=== PATIENT | female | born 1990 | race Caucasian/White ===

== ENCOUNTER 2020-02-21 14:14 | Emergency (ER) | payer MEDICAID, SELFPAY ==
[2020-02-21 14:14] VITALS: BP 124/81; PULSE 75; RESP 17; TEMP 36.6; O2SAT 98; BMI 39.1
--- NOTE | 2020-02-21 14:37 | HMH.EDUTC ---
[facility] [place] Clinical Impression: Otitis externa Qualifiers: Otitis externa type: unspecified type Chronicity: acute Laterality: bilateral Qualified Code(s): H60.503 - Unspecified acute noninfective otitis externa, bilateral Disposition: Home, Self-Care Condition on Discharge: Good Instructions: How to Instill Ear Drops, Otitis Externa, DI for Otitis Externa Additional Instructions: Drink plenty of fluids. Take tylenol or ibuprofen for pain or fever. Take the medications as directed. Follow up with your regular doctor. GO TO THE ER FOR ANY WORSENING SYMPTOMS Prescriptions: Ciprofloxacin HCl/Dexameth [Cipro 0.3%-Dex 0.1% Otic Susp 7.5mL] 2 drops EAR-BOTH BID 7 Days #1 bottle Transmission Status: Received by [id number] Azithromycin [Z-Abner 250mg Tab*] 250 mg PO UD DOSE PK #6 tab Transmission Status: Received by [id number] Referrals: Mj Foley [Primary Care Provider] - Time of Disposition: 14:48 Medical Decision Making - Medical Records Medical records reviewed: No: I reviewed the patient's medical records. - Tab Inquiry Pt receiving controlled substance: No Vital Signs: 02/21/20 14:14 02/21/20 14:52 Temperature 98 F 98 F Temperature Source Oral Oral Pulse Rate 75 Pulse Rate [Radial] 75 Respiratory Rate 17 17 Blood Pressure 124/81 Blood Pressure [Right Arm] 124/81 Blood Pressure Mean [Right Arm] 95 Blood Pressure Source Automatic Cuff Blood Pressure Source [Right Arm] Automatic Cuff Blood Pressure Position Sitting Blood Pressure Position [Right Arm] Sitting 02 Sat by Pulse Oximetry 98 Oxygen Delivery Method Room Air Room Air [facility] [place] - General Stated complaint: Ear pain both ears Time Seen by Provider: 02/21/20 14:42 Mode of Arrival: Ambulatory Source of Information: Patient Limitations: No Limitations Description of Symptoms (Recalled from Triage Doc. by RN): Bilateral ear pain with burning for approx 3 days now HEENT Symptoms (Recalled from RN notes): Yes Resp Symptoms (Recalled from RN notes): No Skin Symptoms (Recalled from RN notes): No MS Symptoms (Recalled from RN notes): No Functional Status (Recalled from RN notes): wnl - History of Present Illness Provider Complaint: She c/o bilateral ear pain and ear draingage for the past 3 days. She denies any fever, chills, or other symptoms. - Related Data Previous Rx's Medication Instructions Recorded Albuterol Sulfate [Albuterol HFA 1 - 2 puffs IH Q4-6H PRN #1 inh 10/19/19 Inhaler] methylPREDNISolone [Medrol 4mg 4 mg PO DIRECTED #21 tab 10/19/19 tab] Azithromycin [Z-Abner 250mg Tab*] 250 mg PO UD DOSE PK #6 tab 02/21/20 Ciprofloxacin HCl/Dexameth [Cipro 2 drops EAR-BOTH BID 7 Days #1 02/21/20 0.3%-Dex 0.1% Otic Susp 7.5mL] bottle Allergies Allergy/AdvReac Type Severity Reaction Status Date / Time amoxicillin Allergy Verified 10/19/19 19:08 Penicillin Allergy Unknown Uncoded 08/06/17 14:53 - Worker's Comp Is this a Worker's Comp case?: No H History - Hepatitis A Screen Drug use history?: No High risk sexual behaviors?: No History of sexually transmitted infection?: No Currently employed?: No Childcare worker?: No Do you have indoor plumbing?: Yes Do you have electricity?: Yes Attestation statement:: This patient has been screened for Hepatitis A risk factors. I have reviewed the patient's past medical history: Yes - Social History Alcohol Intake: never Occupational Status: other ROS Obtained: Yes All systems reviewed & no additional complaints - Constitutional Constitutional: Denies chills, Denies daytime sleepiness - Eyes Eyes: Denies eye discharge - ENT Ears, Nose, Mouth, and Throat: Reports as per HPI - Cardiovascular Cardiovascular: Denies chest pain - Respiratory Respiratory: No chest congestion, No cough, No dyspnea, No coughing up blood, No stridor, No wheezing Physical Exam - General General appearance: alert,
[2020-02-21 14:52] VITALS: BP 124/81; PULSE 75; RESP 17; TEMP 36.6; O2SAT 98
== END 2020-02-21 14:54 | disposition home or self-care (01) ==
PROVIDERS: Emergency Provider Nurse Practitioner Family; PCP Family Medicine
DX: H60.503 Unspecified acute noninfective otitis externa, bilateral (principal)
CPT/HCPCS: 99201

== ENCOUNTER 2021-02-27 07:37 | Emergency (ER) | payer MEDICAID, SELFPAY ==
[2021-02-27 07:43] VITALS: BP 157/82; PULSE 86; RESP 16; TEMP 36.8; O2SAT 100; BMI 34.3
[2021-02-27 08:00] VITALS: BP 128/71; PULSE 76; RESP 18; TEMP 36.7; O2SAT 98
--- NOTE | 2021-02-27 08:06 | HMH.EDEAR ---
ED Disposition Clinical Impression: Otitis media Disposition: Home, Self-Care Condition on Discharge: Good Additional Instructions: Please take [id number] Tylenol or ibuprofen as needed for discomfort and/or ear pain. Take medications as prescribed. Return to the emergency department if you feel worse in any way. Follow-up with your primary care physician in about 3 to 4 days if there is no improvement. Prescriptions: Azithromycin [Z-Abner 250mg Tab*] 250 mg PO UD DOSE PK #6 tab Transmission Status: Received by [id number] Referrals: Mj Foley JR, MD [Primary Care Provider] - - Critical Care Critical Care Time: No Attestation: On 02/27/21, the high probability of a clinically significant, sudden or life threatening deterioration of the following system(s) required my full and direct attention, intervention and personal management. The time I documented below is in addition to time spent performing reported procedures but includes the following listed in this critical care notation. Medical Decision Making - Tab Inquiry Pt receiving controlled substance: No Vital Signs: 02/27/21 07:43 Temperature 98.2 F Temperature Source Oral Pulse Rate [Right Radial] 86 Respiratory Rate 16 Blood Pressure [Right Arm] 157/82 H Blood Pressure Mean [Right Arm] 107 Blood Pressure Source [Right Arm] Automatic Cuff Blood Pressure Position [Right Arm] Sitting 02 Sat by Pulse Oximetry 100 Oxygen Delivery Method Room Air Ear HPI - General Chief complaint: Ear Stated complaint: left ear hurt Time Seen by Provider: 02/27/21 08:06 Mode of Arrival: Ambulatory Source of Information: Patient Limitations: No Limitations Description of Symptoms (Recalled from ER Triage Doc. by RN): Pt c/o L ear pain, pt reports pain began yesterday. Pt reports drainage from L ear. Pt denies fevers. - History of Present Illness Complaint: ear pain Location: left ear Duration: constant Severity: moderate Relieving factors: nothing Exacerbating factors: chewing - Related Data Previous Rx's Medication Instructions Recorded Albuterol Sulfate [Albuterol HFA 1 - 2 puffs IH Q4-6H PRN #1 inh 10/19/19 Inhaler] methylPREDNISolone [Medrol 4mg 4 mg PO DIRECTED #21 tab 10/19/19 tab] Azithromycin [Z-Abner 250mg Tab*] 250 mg PO UD DOSE PK #6 tab 02/21/20 Ciprofloxacin HCl/Dexameth [Cipro 2 drops EAR-BOTH BID 7 Days #1 02/21/20 0.3%-Dex 0.1% Otic Susp 7.5mL] bottle Azithromycin [Z-Baner 250mg Tab*] 250 mg PO UD DOSE PK #6 tab 02/27/21 Allergies Allergy/AdvReac Type Severity Reaction Status Date / Time amoxicillin Allergy Verified 10/19/19 19:08 Penicillin Allergy Unknown Uncoded 08/06/17 14:53 [facility] History - Hepatitis A Screen Drug use history?: No High risk sexual behaviors?: No History of sexually transmitted infection?: No Currently employed?: No Childcare worker?: No Do you have indoor plumbing?: Yes Do you have electricity?: Yes Attestation statement:: This patient has been screened for Hepatitis A risk factors. I have reviewed the patient's past medical history: Yes Medical History: Denies:: Diabetes Mellitus Type 1, Diabetes Mellitus Type 2 Laterality Cases: Bilateral: Myringotomy (Ear Tubes) - Social History Alcohol Intake: never Occupational Status: other ROS Obtained: Yes Systems reviewed as appropriate & no additional complaints Physical Exam - General General appearance: alert, in no apparent distress - Head Head exam: atraumatic, normocephalic, normal inspection - Eye Eye exam: Present: normal appearance, PERRL, EOMI - ENT ENT exam: Absent: TM's normal bilaterally - Expanded ENT Exam External ear exam: Present: normal external inspection TM/Canal exam: Left TM: erythema Mouth exam: Present: normal external inspection Throat exam: Present: normal inspection - Neck Neck exam: Present: normal inspection - Respiratory Respiratory exam: Present: normal tom
== END 2021-02-27 08:23 | disposition home or self-care (01) ==
PROVIDERS: Emergency Provider Emergency Medicine; PCP Family Medicine
DX: H66.92 Otitis media, unspecified, left ear (principal)
CPT/HCPCS: 99281

== ENCOUNTER 2021-04-18 14:03 | Emergency (ER) | payer MEDICAID, SELFPAY ==
[2021-04-18 15:20] VITALS: BP 149/79; PULSE 62; RESP 16; TEMP 36.6; O2SAT 99; BMI 38.6
[2021-04-18 15:28] VITALS: BP 149/79; PULSE 70; RESP 16; TEMP 36.7; O2SAT 98
--- NOTE | 2021-04-18 15:30 | HMH.EDUTC ---
[facility] [place]ression: Suspected COVID-19 virus infection Disposition: Home, Self-Care Condition on Discharge: Good Instructions: DI for COVID-19 (Suspected or Confirmed ), Preventing the Spread of Coronavirus Discharge Instructions Prescriptions: Ondansetron [Zofran 4mg ODT] 4 mg PO TIDP PRN #10 tab PRN Reason: Nausea Transmission Status: Pending to [id number] Referrals: Mj Foley JR, MD [Primary Care Provider] - Medical Decision Making - Tab Inquiry Pt receiving controlled substance: No Tab was queried for this patient: No Vital Signs: 04/18/21 15:20 04/18/21 15:28 Temperature 97.9 F 98.0 F Temperature Source Temporal Artery Scan Oral Pulse Rate 70 Pulse Rate [Right] 62 Respiratory Rate 16 16 Blood Pressure 149/79 H Blood Pressure [Right Arm] 149/79 H Blood Pressure Mean [Right Arm] 102 Blood Pressure Source Automatic Cuff Blood Pressure Source [Right Arm] Automatic Cuff Blood Pressure Position Sitting Blood Pressure Position [Right Arm] Sitting 02 Sat by Pulse Oximetry 99 Oxygen Delivery Method Room Air Medical Decision Narrative: Patient denies [facility] [place] - General Stated complaint: covid test Time Seen by Provider: 04/18/21 15:30 Mode of Arrival: Ambulatory Source of Information: Patient Limitations: No Limitations Description of Symptoms (Recalled from Triage Doc. by RN): pt advised she has headache for three days with body aches and feeling run down. Employer advised she needed covid test HEENT Symptoms (Recalled from RN notes): No Resp Symptoms (Recalled from RN notes): No Skin Symptoms (Recalled from RN notes): No MS Symptoms (Recalled from RN notes): No Functional Status (Recalled from RN notes): na - History of Present Illness Provider Complaint: Patient state that she has not been feeling well for bout 2-3 days with body aches, chills and headache State that employer wanted her to come and get tested then she started with N/V and vomited x 2 - Related Data Previous Rx's Medication Instructions Recorded azithromycin 250 mg tablet 250 mg PO QDAY 5 Days #5 tab 02/28/21 Ondansetron [Zofran 4mg ODT] 4 mg PO TIDP PRN #10 tab 04/18/21 Allergies Allergy/AdvReac Type Severity Reaction Status Date / Time amoxicillin Allergy Verified 02/28/21 17:12 Penicillin Allergy Unknown Uncoded 08/06/17 14:53 - Worker's Comp Is this a Worker's Comp case?: No [facility] History - Hepatitis A Screen Drug use history?: No High risk sexual behaviors?: No History of sexually transmitted infection?: No Currently employed?: No Childcare worker?: No Do you have indoor plumbing?: No Do you have electricity?: Yes Attestation statement:: This patient has been screened for Hepatitis A risk factors. I have reviewed the patient's past medical history: Yes Medical History: Denies:: Diabetes Mellitus Type 1, Diabetes Mellitus Type 2 Laterality Cases: Bilateral: Myringotomy (Ear Tubes) - Social History Smoking Status: Never smoker Alcohol Intake: never Occupational Status: other Family Hx:: Non-contributory ROS Obtained: Yes All systems reviewed & no additional complaints, Yes Systems reviewed as appropriate & no additional complaints - Constitutional Constitutional: Reports system reviewed and no additional complaints, except as docu, Reports body ache, Reports chills, Reports headache(s) - ENT Ears, Nose, Mouth, and Throat: Reports system reviewed and no additional complaints, except as docu - Cardiovascular Cardiovascular: Reports system reviewed and no additional complaints, except as docu - Respiratory Respiratory: Reports system reviewed and no additional complaints, except as docu - Gastrointestinal Gastrointestingal: Reports: system reviewed and no additional complaints, except as docu, nausea, vomiting Physical Exam - General General appearance: alert, in no apparent distress - Expanded ENT Exam
== END 2021-04-18 15:31 | disposition home or self-care (01) ==
PROVIDERS: Emergency Provider Nurse Practitioner; PCP Family Medicine
DX: Z20.822 Contact with and (suspected) exposure to COVID-19 (principal); R11.2 Nausea with vomiting, unspecified; R51.9 Headache, unspecified
CPT/HCPCS: 99202; G0463; U0003

== ENCOUNTER 2022-12-04 18:01 | Emergency (ER) | payer MEDICAID, SELFPAY ==
[2022-12-04 18:25] VITALS: BP 130/91; PULSE 73; RESP 20; TEMP 37.2; O2SAT 98; BMI 37.8
--- NOTE | 2022-12-04 18:39 | EXP.UTC ---
Discharge Plan Disposition Patient Disposition: Home, Self-Care Condition: Good Prescriptions Prescriptions: New azithromycin [Zithromax] 250 mg tablet 250 mg PO UD DOSE PK Qty: 6 0RF Rx Instructions: Take two (2) tablets today, then one (1) tablet days #2 thru #5 benzonatate [benzonatate] 100 mg capsule 100 mg PO TIDP PRN (Reason: Cough) Qty: 30 0RF methylprednisolone 4 mg Tablets,Dose Pack 4 mg PO DIRECTED Qty: 21 0RF Referrals Follow up/Referrals: Prasanna Hines MD [Primary Care Provider] - See instructions Activity Restrictions/Add. Instructions Additional Instructions/Restrictions: Drink plenty of fluids. Take tylenol or ibuprofen for pain or fever. Take the medications as directed. Follow up with your regular doctor. GO TO THE ER FOR ANY WORSENING SYMPTOMS Clinical Impressions Clinical Impression: Acute bronchitis Instructions Patient Instructions: Acute Bronchitis, DI for Acute Bronchitis Discharge ED Provider: Katherin Cruz [facility] General Stated complaint: cough,CRUZ Congestion Time Seen by Provider: 12/04/22 18:39 History of Present Illness Provider Complaint: She states that for the past 2 days she has had sinus and chest congestion. She is coughing up yellowish sputum. Related Data Previous Rx's Medication Instructions Recorded azithromycin 250 mg tablet 250 mg PO UD DOSE PK #6 tabs 12/04/22 (Zithromax) benzonatate 100 mg capsule 100 mg PO TIDP PRN Cough #30 caps 12/04/22 methylprednisolone 4 mg tablets in 4 mg PO DIRECTED #21 tabs 12/04/22 a dose pack Allergies Allergy/AdvReac Type Severity Reaction Status Date / Time amoxicillin Allergy Verified 12/04/22 18:42 Penicillin Allergy Unknown Uncoded 08/06/17 14:53 [facility] Disclaimer: The information contained in this section may have been updated after the patient was seen, as this information can be updated by other users. Social History Smoking Status: Never smoker alcohol intake: never current occupational status: other Travel in the last 8 weeks: Inside the [place] ROS Obtained: Yes All systems reviewed & no additional complaints except as documented Constitutional Constitutional: Reports poor appetite Eyes Eyes: Reports system reviewed and no additional complaints, except as documented ENT Ears, Nose, Mouth, and Throat: Reports as per HPI Cardiovascular Cardiovascular: Reports system reviewed and no additional complaints, except as documented and Denies chest pain Respiratory Respiratory: Denies shortness of breath, Reports chest congestion, Reports cough, Denies stridor and Denies wheezing Gastrointestinal Gastrointestingal: Reports system reviewed and no additional complaints, except as documented; Denies abdominal pain, diarrhea or vomiting Musculoskeletal Musculoskeletal: Reports system reviewed and no additional complaints, except as documented and Denies arthralgias Integumentary/Breasts Skin/Breast: Reports system reviewed and no additional complaints, except as documented and Denies rash Neurologic Neurologic: Denies paresthesias Allergic/Immunologic Allergic/Immunologic: Denies wheezing Physical Exam General General appearance: alert and in no apparent distress Eye Eye exam: Present normal appearance, PERRL and EOMI ENT ENT exam: Present mucous membranes moist and normal external ear exam Expanded ENT Exam External ear exam: Present normal external inspection TM/Canal exam: Bilateral TM: erythema and bulging Nose exam: Absent sinus tenderness Nasal speculum exam: Bilateral: normal Mouth exam: Present normal external inspection; Absent drooling Teeth exam: Present normal inspection Throat exam: Present tonsillar erythema and tonsillomegaly Neck Neck exam: Present normal inspection, full ROM and trachea midline; Absent tenderness, lymphadenopathy or thyromegaly Chest Chest inspection:
[2022-12-04 19:15] VITALS: BP 130/91; PULSE 73; RESP 20; TEMP 37.2; O2SAT 98
== END 2022-12-04 19:15 | disposition home or self-care (01) ==
PROVIDERS: Emergency Provider Physician Assistant Surgical; PCP Pediatrics
DX: J20.9 Acute bronchitis, unspecified (principal); R51.9 Headache, unspecified
CPT/HCPCS: 99212; 99214; G0463

== ENCOUNTER 2024-07-02 08:08 | Emergency (ER) | payer OTHER, SELFPAY ==
[2024-07-02] VITALS (7 sets, daily range): BP systolic 121–130; BP diastolic 67–93; PULSE 68–77; RESP 16–18; TEMP 36.7–36.8; O2SAT 98–100; BMI 37.8
--- NOTE | 2024-07-02 08:11 | ED_ITS ---
Discharge Plan Disposition Patient Disposition: Home, Self-Care Condition: Good Prescriptions Prescriptions: New ciprofloxacin HCl 500 mg tablet 500 mg PO BID 7 Days Qty: 14 0RF tamsulosin 0.4 mg capsule 0.4 mg PO HS Qty: 14 0RF meloxicam 15 mg tablet 15 mg PO DAILY PRN (Reason: pain) 14 Days Qty: 14 0RF No Action azithromycin [Zithromax] 250 mg tablet 250 mg PO UD DOSE PK Qty: 6 0RF Rx Instructions: Take two (2) tablets today, then one (1) tablet days #2 thru #5 benzonatate [benzonatate] 100 mg capsule 100 mg PO TIDP PRN (Reason: Cough) Qty: 30 0RF methylprednisolone 4 mg Tablets,Dose Pack 4 mg PO DIRECTED Qty: 21 0RF Referrals Follow up/Referrals: Prasanna Hines MD [Primary Care Provider] - See instructions Activity Restrictions/Add. Instructions Additional Instructions/Restrictions: As we discussed, the ultrasound of your kidney and did not show any blockage that would suggest a kidney stone large enough to cause blockage of flow of urine into your bladder. I have prescribed a course of antibiotics as well as pain medication and medication that can help pass the kidney stone, if the blood we are noticing in your urine is due to a kidney stone. The blood in your urine may also be due to a UTI given that your symptoms are not similar to kidney stone type of pain that you have had in the past. Please return with any new or worsening symptoms. Clinical Impressions Clinical Impression: Dysuria, Hematuria Instructions Patient Instructions: Urinary Tract Infection Print Language Print Language: Grenadian Discharge ED Provider: [facility] [address] Adult HPI General Chief complaint: Abdominal Pain Stated complaint: back and abd pain, frequent urination Time Seen by Provider: 07/02/24 08:11 History of Present Illness HPI narrative: The patient presents with a chief complaint of right-sided back pain, which she attributes to a history of kidney stones. The pain is described as constant in the lower neck area, with sharp waves of pain in the back. The onset of the current symptoms was approximately one to two days ago, with the patient initially experiencing stomach pain. The patient denies experiencing nausea or vomiting with the current episode. She reports having had kidney stones on the same side in the past, but the pain was more severe and accompanied by vomiting. The patient denies any vaginal discharge, vaginal bleeding, or blood in the urine. Additionally, the patient reports a history of resistance to some antibiotics for urinary tract infections. She mentions having had three kidney stent surgeries in the past. The patient notes that the current pain is less severe than her previous experiences with kidney stones. Please note that above description of symptoms, in this electronic medical record under categorization of recalled from ER triage doctor by RN are reflective of an initial nursing assessment, however, is not reflective of my full history and physical exam that was personally taken and clarified. Consequentially, this preceding description of symptoms, which may include the patient's categorized chief complaint in the EMR, do not reflect my personal clinical impression, and the ultimate description of history of present illness and patient stated complaints should be deferred to this section of the note. Unless stated otherwise or congruent with this section of the note, additional signs, symptoms, or incongruence should be interpreted as inaccurate with my clinical impression. Related Data Previous Rx's ?Medication ?Instructions ?Recorded azithromycin 250 mg tablet 250 mg PO UD DOSE PK #6 tabs 12/04/22 (Zithromax) benzonatate 100 mg capsule 100 mg PO TIDP PRN Cough #30 caps 12/04/22 methylprednisolone 4 mg tablets in 4 mg PO DIRECTED #21 tabs 12/04/22 a dose pack ciprofloxacin HCl 500 mg tablet 500 mg PO BID 7 days #14 tabs 07/02/24 meloxicam 15 mg tablet 15 mg PO DAILY PRN pain 14 days 07/02/24 #14 tabs tamsulosin 0.4 mg capsule 0.4 mg PO HS #14 caps 07/02/24 Allergies Allergy/AdvReac Type Severity Reaction Status Date / Time amoxicillin Allergy Anaphylaxis Verified 07/02/24 08:28 Penicillin Allergy Unknown Other Uncoded 07/02/24 08:28 [facility] Disclaimer: The information contained in this section may have been updated after the patient was seen, as this information can be updated by other users. Social History Smoking Status: Never smoker alcohol intake: never current occupational status: other Travel in the last 8 weeks: Inside the [place] Other Medical History Have you received the Flu Vaccine for this season: Yes Have you received the Pneumonia Vaccine: No ROS Obtained: Yes other As per HPI Physical Exam General General appearance: alert and in no apparent distress Head Head exam: atraumatic and normocephalic Eye Eye exam: Present normal appearance Neck Neck exam: Present normal inspection Chest Chest inspection: Present normal inspection and symmetric chest wall rise Respiratory Respiratory exam: Present normal lung sounds bilaterally; Absent respiratory distress Cardiovascular Cardiovascular exam: Present regular rate and normal rhythm Abdominal Exam Abdominal exam: Present soft Neurological Exam Neurological exam: Present alert and oriented X3 Psychiatric Psychiatric exam: Present normal affect and normal mood Skin Skin exam: Present warm and dry Other Other exam information: Bilateral CVA tenderness to percussion, no abdominal tenderness to palpation Medical Decision Making Medical Records Medical records reviewed: Yes I reviewed the patient's medical records. Screening: Per USPSTF and CDC recommendations, given the prevalence of disease in our region, it is our hospital?s policy to screen for HIV and viral Hepatitis for all patients aged 18 and over and those with ongoing risk factors. Tab Inquiry Pt receiving controlled substance: No Vital Signs: 07/02/24 08:16 07/02/24 08:22 07/02/24 08:31 Temperature 98.2 F Temperature Source Oral Pulse Rate 75 72 Pulse Rate [Left] 68 Respiratory Rate 16 Blood Pressure 121/93 H 130/84 Blood Pressure [Right Arm] 121/93 H Blood Pressure Mean [Right Arm] 102 Blood Pressure Source [Right Arm] Automatic Cuff Blood Pressure Position [Right Arm] Sitting 02 Sat by Pulse Oximetry 100 100 99 Oxygen Delivery Method Room Air Room Air Room Air 07/02/24 09:00 07/02/24 09:22 07/02/24 09:30 Temperature Temperature Source Pulse Rate 68 71 69 Pulse Rate [Left] Respiratory Rate Blood Pressure 125/79 126/67 Blood Pressure [Right Arm] Blood Pressure Mean [Right Arm] Blood Pressure Source [Right Arm] Blood Pressure Position [Right Arm] 02 Sat by Pulse Oximetry 98 99 99 Oxygen Delivery Method Room Air Room Air Room Air 07/02/24 09:54 Temperature 98.1 F Temperature Source Pulse Rate 77 Pulse Rate [Left] Respiratory Rate 18 Blood Pressure 126/72 Blood Pressure [Right Arm] Blood Pressure Mean [Right Arm] Blood Pressure Source [Right Arm] Blood Pressure Position [Right Arm] 02 Sat by Pulse Oximetry Oxygen Delivery Method Lab Data Lab Results 07/02/24 08:11: Urine Color Yellow, Urine Appearance Clear, Urine pH 6.0, Ur Specific [place] 1.020, Urine Protein Negative, Urine Glucose (UA) Negative, Urine Ketones Negative, Urine Blood 2+ A, Urine Nitrate Negative, Urine Bilirubin Negative, Urine Urobilinogen 0.2, Ur Leukocyte Esterase Negative, Urine RBC 3-5, Urine WBC Occasional, Ur Squamous Epith Cells 3-5, Urine Bacteria Trace 07/02/24 08:49: WBC 9.3, RBC 4.53, Hgb 14.7, Hct 42.1, MCV 92.9, MCH 32.5 H, MCHC 35.0, RDW 12.4, Plt Count 285, MPV 8.5, Neut % (Auto) 62.9, Lymph % (Auto) 29.3, [place] % (Auto) 4.9, Eos % (Auto) 2.0, Baso % (Auto) 0.8, Neut # (Auto) 5.9, Lymph # (Auto) 2.7, [place] # (Auto) 0.5, Eos # (Auto) 0.2, Baso # (Auto) 0.1, Sodium 138, Potassium 3.8, Chloride 104, Carbon Dioxide 27, Anion Gap 10.8, BUN 11, Creatinine 0.60, Estimated Creat Clear 210, Estimated GFR 115, Est GFR ( Amer) 139, Glucose 93, Calcium 9.0, Total Bilirubin 0.6, AST 30, ALT 28, Alkaline Phosphatase 71, Total Protein 7.1, Albumin 4.5, Globulin 2.6, Albumin/Globulin Ratio 1.7, Serum HCG, Qual Negative 07/02/24 08:49 07/02/24 08:49 Orders (Tests/Meds): ORDERS Category Date Time Status CBC w/Auto Diff [Complete Blood Count Auto Diff] Stat Lab 07/02/24 08:49 Completed CMP [Comprehensive Metabolic Panel] Stat Lab 07/02/24 08:49 Completed HCG Qualitative, Serum Stat Lab 07/02/24 08:49 Completed Urinalysis and Microscopic Stat Lab 07/02/24 08:11 Completed Urine Culture Stat Micro 07/02/24 08:11 Received Medical Decision Narrative: Patient with history and exam per above presenting for evaluation of dysuria, flank pain Diagnoses considered include urolithiasis, pyelonephritis, hemorrhagic cystitis, acute kidney injury, among others. No clinical evidence of acute surgical abdominal pathology ED workup and treatment included: ORDERS Category Date Time Status CBC w/Auto Diff [Complete Blood Count Auto Diff] Stat Lab 07/02/24 08:49 Completed CMP [Comprehensive Metabolic Panel] Stat Lab 07/02/24 08:49 Completed HCG Qualitative, Serum Stat Lab 07/02/24 08:49 Completed Urinalysis and Microscopic Stat Lab 07/02/24 08:11 Completed Urine Culture Stat Micro 07/02/24 08:11 Received Labs were independently interpreted by me, significant for microscopic hematuria, occasional pyuria, trace bacteriuria My clinical impression at this time is most consistent with hemorrhagic cystitis I discussed my clinical impression with patient and answered all questions. At this time, the evidence for any other entities in the differential is insufficient to warrant any further testing or ED observation. This was explained to the patient. The patient was advised that persistent or worsening symptoms require further evaluation. Critical Care Critical Care Time Critical Care Time: No
--- NOTE | 2024-07-02 08:31 | PC.NURSE ---
dr vivas at bedside
[2024-07-02 08:40] LABS: Microscopic, Urine URINE MICROSCOPIC (MICROSCOPIC)
[2024-07-02 08:48] LABS: Appearance,Urine CLEAR (Clear); Bilirubin,Urine Negative (Negative); Blood, Urine 2+ (Negative); Color,Urine YELLOW (Yellow); Glucose,Urine (UA) Negative (Negative); Ketones,Urine Negative (Negative); Leukocyte Esterase,Urine Negative (Negative); Nitrate,Urine Negative (Negative); Protein,Urine Negative (Negative); Urobilinogen,Urine 0.2 EU/dl (0.2)
--- NOTE | 2024-07-02 08:56 | PC.NURSE ---
Rounded on patient; no needs at this time. Call alexander within reach
[2024-07-02 08:59] LABS: Basophils # 0.1 K/mm3 (0-0.2); Basophils % 0.8 % (0.1-2.0); Eosinophils # 0.2 K/mm3 (0.0-0.4); Hematocrit 42.1 % (37.0-47.0); Hemoglobin 14.7 g/dL (12.2-16.2); Lymphocytes # 2.7 K/mm3 (0.7-4.5); Lymphocytes % 29.3 % (10-50); Mean Corpuscular Hemoglobin 32.5 pg (27.0-31.2); Mean Corpuscular Volume 92.9 fl (81-99); Mean Platelet Volume 8.5 fl (7.4-10.4); Monocytes # 0.5 K/mm3 (0.1-1.0); Monocytes % 4.9 % (1.7-9.3); Neutrophils # 5.9 K/mm3 (1.8-7.8); Neutrophils % 62.9 % (37.0-80.0); Platelet Count 285 K/mm3 (142-424); Red Blood Count 4.53 M/mm3 (4.20-5.40); Red Cell Distribution Width 12.4 % (11.5-17.5); White Blood Count 9.3 K/mm3 (4.8-10.8)
[2024-07-02 09:03] LABS: Bacteria,Urine Trace /lpf; WBC,Urine Occasional #/hpf (0-3)
[2024-07-02 09:14] LABS: Alanine Aminotransferase 28 U/L (12-78); Albumin Level 4.5 g/dl (3.5-5.0); Albumin/Globulin Ratio 1.7 (1.1-1.8); Alkaline Phosphatase 71 U/L (38-126); Anion Gap 10.8 mEq/L (5-15); Aspartate Amino Transferase 30 U/L (14-36); Bilirubin,Total 0.6 mg/dl (0.2-1.3); Blood Urea Nitrogen 11 mg/dl (7-17); Carbon Dioxide 27 mmol/L (22.0-30.0); Chloride 104 mmol/L (98-107); Creatinine Clearance Estimated 210 mL/min (50-200); Estimated Glomerular Filt Rate 115 ml/min (>60); GFR (African American) 139 ML/MIN (>60); Globulin 2.6 g/dL (1.3-3.2); Glucose 93 mg/dl (74-100); Potassium 3.8 mmoL/L (3.5-5.1); Sodium 138 mmol/L (136-145); Total Protein,Serum 7.1 g/dl (6.3-8.2)
[2024-07-02 09:22] LABS: HCG Qualitative, Serum Negative (Negative)
== END 2024-07-02 09:55 | disposition home or self-care (01) ==
PROVIDERS: Emergency Provider Emergency Medicine; PCP Pediatrics
DX: R31.9 Hematuria, unspecified (principal); R30.0 Dysuria; M54.9 Dorsalgia, unspecified; R35.0 Frequency of micturition; M54.2 Cervicalgia; R10.9 Unspecified abdominal pain
CPT/HCPCS: 80053; 81001; 84703; 85025; 87086; 99284